=== PATIENT | male | born 1985 | race Caucasian/White ===

== ENCOUNTER 2019-05-20 23:57 | Emergency (ER) | payer SELFPAY ==
[~2019-05-20] VITALS: Ht 180.3 cm; Wt 84.1 kg
[2019-05-21 00:11] VITALS: TEMP 97.6
[2019-05-21 01:58] VITALS: BP 130/82; PULSE 84
== END 2019-05-21 02:07 | disposition home or self-care (01) ==
LOC: COL.ER 23:57
DX: S05.01XA Injury of conjunctiva and corneal abrasion without foreign body, right eye, initial encounter (principal); X58.XXXA Exposure to other specified factors, initial encounter